=== PATIENT | female | born 1965 | race Caucasian/White ===

== ENCOUNTER → 2020-08-21 16:18 | Outpatient (CLI) | payer BC | END | disposition home or self-care (01) | LOC: D.US 16:00 | PROVIDERS: ATTEND Family Medicine | DX: R10.9 Unspecified abdominal pain (principal); R14.0 Abdominal distension (gaseous) ==

== ENCOUNTER → 2020-08-23 07:33 | Outpatient (CLI) | payer MEDICARE | END | disposition home or self-care (01) | LOC: D.US 07:33 | PROVIDERS: ATTEND Nurse Practitioner | DX: R19.07 Generalized intra-abdominal and pelvic swelling, mass and lump (principal); D25.9 Leiomyoma of uterus, unspecified ==